=== PATIENT | female | born 1955 | race Caucasian/White ===

== ENCOUNTER → 2020-06-14 | Outpatient (CLI) | payer BC ==
[~2020-06-14] MED LIST: ACET1TAB33 PO; CRESTOR5 MG PO; CYCL10TA2 PO; HYDR15SO6 PO; LEVO50TA5 PO; LORA-434 PO; LOSA-73 PO; PANT40TA77 PO
== END ==
LOC: LAB 09:46
PROVIDERS: ATTEND Surgery
DX: Z01.812 Encounter for preprocedural laboratory examination (principal); K21.9 Gastro-esophageal reflux disease without esophagitis; Z20.822 Contact with and (suspected) exposure to COVID-19
CPT/HCPCS: U0003

== ENCOUNTER 2020-06-19 06:13 | Observation (INO) | payer BC ==
[2020-06-19] VITALS (9 sets, daily range): BP systolic 127–157; BP diastolic 77–95
[~2020-06-19] VITALS: Ht 157.5 cm; Wt 81.9 kg
[~2020-06-19 06:13] MED LIST changes: -HYDR15SO6 PO; +IV RINGERS,LACTATED 1000ML 1,000 ML IV SCH; +PROCHLORPERAZINE 10 MG/2 ML VIAL. IVP PRN; +fentaNYL PF VIAL 100 MCG/2 ML VIAL IVP PRN
[2020-06-19] MEDS ORDERED: KETAMINE HCL IN NACL, ISO-OSM 50 MG/5 ML SYRINGE ONE (06:58)
[2020-06-19] MEDS ORDERED: ROCURONIUM 50 MG/5 ML VIAL. ONE (06:58)
[2020-06-19] MEDS ORDERED: MIDAZOLAM HCL/PF 2 MG/2 ML VIAL. ONE (06:59)
[2020-06-19] MEDS ORDERED: fentaNYL PF VIAL 250 MCG/5 ML VIAL ONE (06:59)
[2020-06-19] MEDS ORDERED: SURGICEL HEMOSTAT 4X8 EACH. ONE (07:00)
[2020-06-19] MEDS ORDERED: BUPIVACAINE-EPI 0.5% 30 ML VIAL KIT. ONE (07:00)
[2020-06-19] MEDS ORDERED: PROPOFOL 10 MG/ML (20ML) VIAL. IV ONE (07:00)
[2020-06-19] MEDS ORDERED: LIDOCAINE 2% PF 5 ML VIAL. ONE (07:01)
[2020-06-19] MEDS ORDERED: ONDANSETRON PF 4 MG/2 ML VIAL. ONE ×2 (07:03→08:49)
[2020-06-19] MEDS ORDERED: FAMOTIDINE 20 MG/2 ML VIAL ONE (07:05)
[2020-06-19] MEDS ORDERED: SUCCINYLCHOLINE 200 MG/10 ML VIAL. ONE (07:39)
[2020-06-19] MEDS ORDERED: DEXAMETHASONE SOD PHOS 20 MG/5 ML VIAL. ONE (08:10)
[2020-06-19] MEDS ORDERED: NEOSTIGMINE METHYLSULFATE 5 MG/5 ML SYRINGE. ONE (08:11)
[2020-06-19] MEDS ORDERED: GLYCOPYRROLATE 1 MG/5 ML VIAL. ONE (08:11)
--- NOTE | 2020-06-19 10:36 | PDOC4 ---
Operative Note Operative Note Operative Note Preoperative Diagnosis: Gastroesophageal reflux disease Postoperative Diagnosis: Gastroesophageal reflux disease with small hiatal hernia Procedure: Laparoscopic Shaheed fundoplication with repair of hiatal hernia Surgeon: Fei Mon.: Dr. Sellers Anesthesia: Gen. Estimated Blood Loss: 10 mL Specimen: None Drains: None Complications: None Indications: The patient is a 64-year-old female who was referred by her GI physician due to gastroesophageal reflux disease. Her systems have been persistent and prominent and she was offered antireflux surgery. The risks of surgery were discussed which include bleeding, infection, recurrent herniation, gastric or esophageal perforation, visceral injury, recurrent reflux, gas bloat syndrome, dysphasia, potential need for additional surgeries or procedures. She understands and would like to proceed. Description: The patient was taken to the operating room and placed supine on the operating table. General anesthesia was performed. The patient was then placed in lithotomy. The abdomen was prepped with ChloraPrep and draped in a standard surgical fashion. A small incision was made superior to and to the patient's left of the umbilicus through which a visualized 5 mm trocar was inserted. A pneumoperitoneum was then created and the laparoscope was int roduced. In the right lateral abdomen a 12 mm trocar was inserted through which a soft fan retractor was used to elevate the left lobe of the liver. In the right upper quadrant a 5 mm trocar was inserted. In the left upper quadrant an 11 mm trocar was inserted while in the left lateral abdomen a 5 mm trocar was inserted. Attention was then directed to the diaphragmatic hiatus. We began by opening the pars flaccida in an avascular location with the harmonic scalpel. The dissection was continued up toward the right emi. There was a crossing vessel that was doubly clipped and divided. We mobilized the right emi from the border of the esophagus. The dissection was continued anteriorly freeing up some of the attachments. The patient did have a small hiatal hernia which was readily reduced by mobilizing the mediastinal attachments. The dissection continued toward the left emi which was also freed up from the border of the esophagus. The gastrocolic omentum was then opened with the Harmonic scalpel in the upper portion of the greater curvature. We then freed up the upper part of the greater curvature and fundus using the harmonic scalpel. Large blood vessels were doubly clipped and divided. The dissection continued all the way back up to the left emi and any remaining splenic attachments were also mobilized. At this point the esophagus was readily visualized and we were able to free up the area around his gastroesophageal junction. A Paul drain was then placed around the esophagus at the GE junction and clips were applied holding the Paul in place. With retraction on the Pierpont we were able to continue freeing up any remaining sac attachments particularly in the posterior location. At this point the GE junction was well within the abdominal cavity. The left and right emi were then reapproximated with interrupted 2-0 silk sutures using the Endo Stitch device. Stitches were applied both anteriorly and posteriorly allowing for closure of the hernia defect. The fundus was then wrapped around in a 360 fashion creating the fundoplication. A shoeshine maneuver was used to ensure no twists or kinks. An initial 2-0 Ethibond suture was used securing the fundic lips together. Another suture was placed superior to this which incorporated a small bite of the anterior esophagus. An additional suture was then placed inferiorly completing the fundoplication. The wrap was then anchored to the right emi with a silk suture. At this point hemostasis was good. The 11 and 12 mm trochars were then removed and the fascia closed with 0 Vicryl using an Endo Close. The remaining ports were removed and the pneumoperitoneum was relieved. Skin at all incisions was closed with 4-0 Monocryl. Steri-Strips and dressings were applied. The patient tolerated the procedure well. DOREEN KAUFMAN MD Jun 19, 2020 10:36
[2020-06-19] MEDS ORDERED: MORPHINE SULFATE 2 MG/ML VIAL. ONE (10:41)
[2020-06-19] MEDS: MORPHINE SULFATE 2 MG/ML VIAL. IVP PRN ×2 (10:42→10:55)
[2020-06-19] MEDS ORDERED: NALOXONE 0.4 MG/ML VIAL. IV PRN (10:45)
[2020-06-19] MEDS ORDERED: ONDANSETRON PF 4 MG/2 ML VIAL. IVP PRN (10:45)
[2020-06-19] MEDS: IV NORMAL SALINE 1000ML BAG 1,000 ML IV SCH (10:45)
[2020-06-19] MEDS ORDERED: PROCHLORPERAZINE 10 MG/2 ML VIAL. IV PRN (10:45)
[2020-06-19] MEDS ORDERED: 0.9 % SODIUM CHLORIDE 10 ML DISP.SYRIN. IV PRN (10:45)
[2020-06-19] MEDS ORDERED: HYDROmorphone 2 MG/ML VIAL ONE (10:58)
[2020-06-19] MEDS: HYDROmorphone 2 MG/ML VIAL IVP PRN ×3 (11:00→11:24)
[2020-06-19] MEDS: HYDROmorphone 2 MG/ML VIAL IV PRN ×3 (12:55→21:03)
[2020-06-19] MEDS: IV 1/2 NORMAL SALINE 1,000 ML IV SCH (12:55)
[2020-06-19] MEDS ORDERED: KETOROLAC 30 MG/ML VIAL. IVP ONE (15:30)
[2020-06-19] MEDS ORDERED: BENZOCAINE/MENTHOL LOZENGE. PO PRN (19:30)
[2020-06-19] MEDS ORDERED: ATORVASTATIN CALCIUM 40 MG TABLET. PO SCH (21:00)
[2020-06-20 03:00] VITALS: BP 155/92
[2020-06-20] MEDS: HYDROmorphone 2 MG/ML VIAL IV PRN (03:37)
[2020-06-20 07:00] VITALS: BP 175/84
[2020-06-20] MEDS ORDERED: LEVOTHYROXINE 50 MCG TABLET PO SCH (07:30)
[2020-06-20] MEDS: IV 1/2 NORMAL SALINE 1,000 ML IV SCH ×2 (08:23)
--- NOTE | 2020-06-20 08:44 | PDOC ---
RICO OWEN APRN 06/20/20 0844: SURGICAL PROGRESS NOTE DATE: 06/20/20 TIME: 08:43 Subjective pain managed urinating wanting liquids wants to go home today mild nausea with pills on empty stomach Vital Signs Vital Signs Date Time Temp Pulse Resp B/P (MAP) Pulse Ox O2 Delivery O2 Flow Rate FiO2 06/20/20 08:23 113 155/92 06/20/20 07:40 Room Air 2.0 06/20/20 04:00 91 06/20/20 03:00 98.6 18 98.6 I&O Intake and Output 06/20/20 07:00 Intake Total 1970 ml Output Total 85 ml Balance 1885 ml Intake Oral 220 ml IV Total 1750 ml Output Urine Total 75 ml Estimated Blood Loss 10 ml # Voids 5 General: Alert, Oriented X3, Cooperative Abdomen: Soft, Other (ND, NTTP, lap site dressings dry) Problem List s/p isa clears, if does well, home later today Justicifation of Admission Dx: Justifications for Admission: Justification of Admission Dx: Yes Comments: GERD, HH DOREEN KAUFMAN MD 06/20/20 0935: SURGICAL PROGRESS NOTE Assessment/Plan Agree with above RICO OWEN APRN Jun 20, 2020 08:44 DOREEN KAUFMAN MD Jun 20, 2020 09:35
[2020-06-20] MEDS ORDERED: HYDROcodon/APAP 7.5/325MG ORAL 15 ML SOLUTION PO PRN (08:45)
[2020-06-20] MEDS ORDERED: HYDR15SO6 PO ×2 (08:46→10:47)
--- NOTE | 2020-06-20 08:49 | DISCH ---
DISCHARGE INSTRUCTIONS Condition on Discharge Condition on Discharge: Stable Activity After Discharge Activity Instructions for Disc: Activity as tolerated Lifting Instructions after Dis: No heavy lifting, No pulling or pushing, Do not lift >10 pounds Exercise Instruction after Dis: Progress as tolerated Driving Instructions after Dis: Do not drive today, Other, see below (no driving while taking pain medication ) Diet after Discharge Diet after Discharge: Full Liquid (x 2 weeks, no carbonated drinks ) Wound Incision Care Wound/Incision Care: May get incision wet, No wound care needed Other wound/incision instructi: no tub baths Contacting the DRRusty after DC Call your doctor for: Concerns you may have Follow-Up Follow up with: Dr Enamorado 2 weeks, call to schedule [phone] RICO OWEN APRN Jun 20, 2020 08:49
[2020-06-20] MEDS ORDERED: LOSARTAN POTASSIUM 50 MG TABLET. PO SCH (09:00)
[2020-06-20] MEDS: IV NORMAL SALINE 1000ML BAG 1,000 ML IV SCH (09:51)
[2020-06-20 11:00] VITALS: BP 168/85
--- NOTE | 2020-06-20 13:17 | NUR ---
Discharge Note: BELA ANDRADE5 [place] Discharge instructions and discharge home medications reviewed with Patient and a copy given. All questions have been answered and understanding verbalized. The following instructions and handouts were given: d/c instructions Discontinued lines and drains: Peripheral IV intact. Patient discharged to Home or Self Care with Family Member via Wheelchair
--- NOTE | 2020-06-20 13:18 | NUR ---
SW following for discharge planning. Spoke with RN and reviewed chart. Pt to discharge home today, self-care. Pt on room air and oral medications. No further SW needs at this time.
--- NOTE | 2020-06-24 13:10 | PDOC3 ---
Discharge Summary Visit Information Date of Admission: Jun 19, 2020 Date of Discharge: Jun 20, 2020 Admitting Diagnosis Comment: Gastroesophageal reflux disease Final Diagnosis Gastroesophageal reflux disease with small hiatal hernia Brief Hospital Course Allergies Allergies Coded Allergies Type Severity Reaction Last Updated Verified atorvastatin Adverse Reaction Severe Diarrhea 06/19/20 Yes Brief Hospital Course Ms. Appiah is a 64 old female who underwent Laparoscopic Shaheed fundoplication with repair of hiatal hernia.. Postoperatively started clears and tolerated, managed pain with oral medications. Instructions were given for a full liquid diet x 2 weeks. FU in office Discharge Information Condition at Discharge: Stable Follow Up: Weeks (2) Disposition/Orders: D/C to Home Scheduled Levothyroxine Sodium (Levothyroxine Sodium) 50 Mcg Tablet, 50 MCG PO DAILYAC for THYROID SUPPLEMENT, #30 Ref 0 (Reported) Entered as Reported by: WILLIAM SCRUGGS on 06/18/20829 Last Taken: Unknown Dose on 06/19/20 0500 Last Action: Continued on 06/19 by DOREEN KAUFMAN Losartan Potassium (Losartan Potassium) 50 Mg Tablet, 50 MG PO DAILY for HYPERT ENSION, (Reported) Entered as Reported by: WILLIAM SCRUGGS on 06/18/20829 Last Taken: Unknown Dose on 06/19/20 0500 Last Action: Continued on 06/19/201040 by DOREEN KAUFMAN Rosuvastatin Calcium (Crestor) 5 Mg Tablet, 10 MG PO HS for FOR CHOLESTEROL, #30 Ref 0 (Reported) Entered as Reported by: WILLIAM SCRUGGS on 06/18/20829 Last Taken: Unknown Dose on 06/18/20 Last Action: Converted on 06/19/201040 by DOREEN KAUFMAN Scheduled PRN Cyclobenzaprine Hcl (Cyclobenzaprine Hcl) 10 Mg Tablet, 10 MG PO PRN PRN for PAIN, (Reported) Entered as Reported by: WILLIAM SCRUGGS on 06/18/20829 Last Taken: Unknown Dose on 06/18/20 Last Action: HELD on 06/19/201040 by DOREEN KAUFMAN Hydrocodone Bit/Acetaminophen (Hydrocodone-Apap 7.5-325/15 Soln ) 15 Ml Solution, 15 ML PO PRN Q6HRS PRN for PAIN, #300 Ref 0 Prescribed by: Rico Sandy on 2/11/21 1048 Lorazepam (Ativan) 1 Mg Tablet, 1 MG PO PRN PRN for ANXIETY / AGITATION, (Reported) Entered as Reported by: WILLIAM SCRUGGS on 06/18/20829 Last Taken: Unknown Dose on 06/18/20 Last Action: Continued on 06/19/20 104 by DOREEN KAUFMAN Discontinued Medications Acetaminophen With Codeine (Acetaminophen-Cod #3 Tablet) 1 Each Tablet, 1 TAB PO PRN Q6HRS PRN for PAIN, (Reported) Entered as Reported by: WILLIAM SCRUGGS on 06/18/20829 Last Taken: Unknown Dose on 06/10/20 Last Action: HELD on 06/19/201040 by DOREEN KAUFMAN Pantoprazole Sodium (Protonix ) 40 Mg Tablet.dr, 40 MG PO BID for GERD, (Reported) Entered as Reported by: WILLIAM SCRUGGS on 06/18/20829 Last Taken: Unknown Dose on 06/19/20 0500 Last Action: HELD on 06/19/20 104 by DOREEN KAUFMAN Justicifation of Admission Dx: Justifications for Admission: Justification of Admission Dx: Yes RICO SANDY APRN Jun 24, 2020 13:10
== END 2020-06-20 14:22 | disposition home or self-care (01) ==
LOC: SURG 06:13 → EDUNIT# 07:30 → INTOOBSV 10:36 → 5 NORTH 10:36
PROVIDERS: ADMIT Surgery; ATTEND Surgery
DX: K44.9 Diaphragmatic hernia without obstruction or gangrene (principal); K21.9 Gastro-esophageal reflux disease without esophagitis
CPT/HCPCS: 43280; 96361; 96374; 96375; 96376; G0378; G0379; J0330; J0690; J1100; J1170; J1885; J2250; J2270; J2405; J2704; J2710; J3010; J3490; J7120